=== PATIENT | male | born 1945 | race Caucasian/White ===

== ENCOUNTER → 2018-12-23 08:21 | Outpatient (CLI) | payer MEDICARE, BC, SELFPAY ==
[2018-12-23 10:11] LABS: Add Manual Diff / Slide Review NO; Basophils Absolute Auto 0 /uL (0-100); Basophils Percent Auto 1.2 % (0-2); Eosinophils Absolute Auto 100 /uL (0-450); Eosinophils Percent Auto 3.2 % (2-4); Hematocrit 42.2 % (41-53); Hemoglobin 14.5 g/dL (13.5-17.5); Lymphocytes Absolute Auto 1200 /uL (1100-4500); Lymphocytes Percent Auto 31.8 % (25-40); Mean Corpuscular HGB Conc 34.5 % (30-36); Mean Corpuscular Hemoglobin 30.9 PG (26-34); Mean Corpuscular Volume 89.5 fL (80-100); Monocytes Absolute Auto 400 /uL (0-900); Monocytes Percent Auto 10.7 % (3-14); Neutrophils Absolute Auto 2000 /uL (1500-7000); Neutrophils Percent Auto 53.1 % (50-75); Platelet Count 272 X10^3/uL (150-400); Red Blood Cell Count 4.71 X10^6/uL (4.5-5.9); Red Cell Distribution Width 13.5 % (11.6-14.8); White Blood Cell Count 3.9 X10^3/uL (4.5-11.0)
[2018-12-23 10:58] LABS: Alanine Aminotransferase 43 IU/L (21-72); Albumin 4.6 g/dL (3.5-5.0); Albumin Globulin Ratio 1.5 (1.0-2.8); Alkaline Phosphatase 79 U/L (38-126); Aspartate Aminotransferase 39 IU/L (17-59); Bilirubin Total 0.9 mg/dL (0.2-1.3); Blood Urea Nitrogen 16 mg/dL (9-20); Calcium 8.4 mg/dL (8.4-10.2); Carbon Dioxide 27 mmol/L (22-32); Chloride 103 mmol/L (98-107); Cholesterol 228 mg/dL (140-199); Estimated Glomerular Filt Rate > 60.0 mL/min (>60); Globulin 3.1 g/dL (1.7-4.1); Glucose 90 mg/dL (80-110); HDL Cholesterol 77 mg/dL (40-60); HEMOLYSIS < 15 (0-50); LDL Cholesterol Calculated 119 mg/dL (<100); Potassium 4.3 mmol/L (3.4-5.1); Sodium 140 mmol/L (137-145); Total Protein 7.7 g/dL (6.3-8.2); Triglycerides 158 mg/dL (35-150)
[2018-12-23 11:08] LABS: Thyroid Stimulating Hormone 3.91 uIU/mL (0.47-4.68)
[2018-12-23 11:24] LABS: Prostate Specific Antigen Scrn 1.57 ng/mL (0.1-4.0)
[2018-12-25 08:16] LABS: Hepatitis B Surf AB Imm QUANT < 5 mIU/mL (> 9)
== END ==
PROVIDERS: Family Provider Family Medicine; PCP Family Medicine; Visit Provider Family Medicine
DX: E78.5 Hyperlipidemia, unspecified (principal); Z01.84 Encounter for antibody response examination; Z12.5 Encounter for screening for malignant neoplasm of prostate; Z13.0 Encounter for screening for diseases of the blood and blood-forming organs and certain disorders involving the immune mechanism; Z13.1 Encounter for screening for diabetes mellitus
CPT/HCPCS: 36415; 80053; 80061; 84443; 85025; 86317; G0103

== ENCOUNTER → 2020-03-02 08:33 | Outpatient (CLI) | payer MEDICARE, BC, SELFPAY ==
[2020-03-02 09:01] LABS: Add Manual Diff / Slide Review NO; Basophils Absolute Auto 0 /uL (0-100); Basophils Percent Auto 1.1 % (0-2); Eosinophils Absolute Auto 100 /uL (0-450); Eosinophils Percent Auto 3.5 % (2-4); Hematocrit 41.5 % (41-53); Hemoglobin 14.7 g/dL (13.5-17.5); Lymphocytes Absolute Auto 1300 /uL (1100-4500); Lymphocytes Percent Auto 34.2 % (25-40); Mean Corpuscular HGB Conc 35.3 % (30-36); Mean Corpuscular Hemoglobin 31.4 PG (26-34); Monocytes Absolute Auto 300 /uL (0-900); Monocytes Percent Auto 8.8 % (3-14); Neutrophils Absolute Auto 2000 /uL (1500-7000); Neutrophils Percent Auto 52.4 % (50-75); Platelet Count 257 X10^3/uL (150-400); Red Blood Cell Count 4.66 X10^6/uL (4.5-5.9); White Blood Cell Count 3.8 X10^3/uL (4.5-11.0)
[2020-03-02 09:23] LABS: Alanine Aminotransferase 29 IU/L (<50); Albumin 4.7 g/dL (3.5-5.0); Albumin Globulin Ratio 1.8 (1.0-2.8); Alkaline Phosphatase 70 U/L (38-126); Aspartate Aminotransferase 35 IU/L (17-59); BUN Creatinine Ratio 15.9 (6-22); Bilirubin Total 0.7 mg/dL (0.2-1.3); Blood Urea Nitrogen 14 mg/dL (9-20); Calcium 9.1 mg/dL (8.4-10.2); Carbon Dioxide 28 mmol/L (22-32); Chloride 106 mmol/L (98-107); Cholesterol 212 mg/dL (140-199); Estimated Glomerular Filt Rate > 60.0 mL/min (>60); Globulin 2.6 g/dL (1.7-4.1); Glucose 97 mg/dL (80-110); HDL Cholesterol 77 mg/dL (40-60); HEMOLYSIS < 15 (0-50); LDL Cholesterol Calculated 104 mg/dL (<100); Potassium 4.8 mmol/L (3.4-5.1); Sodium 141 mmol/L (137-145); Total Protein 7.3 g/dL (6.3-8.2); Triglycerides 154 mg/dL (35-150)
[2020-03-02 09:52] LABS: Prostate Specific Antigen Scrn 1.72 ng/mL (0.1-4.0); Thyroid Stimulating Hormone 3.66 uIU/mL (0.47-4.68)
== END ==
PROVIDERS: Family Provider Family Medicine; PCP Family Medicine; Referring Provider Family Medicine; Visit Provider Family Medicine
DX: E78.2 Mixed hyperlipidemia (principal); Z12.5 Encounter for screening for malignant neoplasm of prostate
CPT/HCPCS: 36415; 80053; 80061; 84443; 85025; G0103

== ENCOUNTER → 2020-03-07 09:15 | Outpatient (CLI) | payer MEDICARE, BC, SELFPAY ==
[2020-03-08 16:13] LABS: COVID19 Sendout Not Detected (Not Detect)
== END ==
PROVIDERS: Family Provider Family Medicine; PCP Family Medicine; Visit Provider Physician Assistant
DX: Z01.812 Encounter for preprocedural laboratory examination (principal)
CPT/HCPCS: 87635

== ENCOUNTER → 2020-03-10 13:36 | Outpatient (CLI) | payer MEDICARE, BC, SELFPAY ==
--- NOTE | 2020-03-10 14:37 | PM.TREADMILL ---
Cardiac Stress Test Report Referral & Results Date Patient Seen: 03/10/20 Time Patient Seen: 14:30 Requesting provider: Ramon Caldwell Indication: Unexplained tachycardia Rest ECG: Sinus tachycardia in the low 100s. Procedure Note: Today following both written and verbal informed consent, the patient was exercised according to a standard [facility] protocol. The patient exercised for a total of 6 minutes 20 seconds achieving a maximum heart rate of 170 for. Patient's maximum systolic blood pressure was 188. This was an estimated 7 METs. Normal hemodynamic response to exercise. No change in rhythm. 0.[address] deviations in inferior leads that responded rapidly with rest. Rapid drop of heart rate into the 80s after finishing exercise. No signs or symptoms of angina. Normal exercise capacity (MARIAN 0% on active scale). Impression: Normal test. Low probability for ischemia. Please note: Actual ECG tracings can be found in the PACS system.
== END ==
PROVIDERS: Family Provider Family Medicine; PCP Family Medicine; Referring Provider Student in an Organized Health Care Education/Training Program; Visit Provider Student in an Organized Health Care Education/Training Program
DX: R00.0 Tachycardia, unspecified (principal)
CPT/HCPCS: 93016; 93017; 93018

== ENCOUNTER → 2021-08-04 10:43 | Outpatient (CLI) | payer MEDICARE, BC, SELFPAY ==
[2021-08-04 12:36] LABS: Prostate Specific Antigen Scrn 2.58 ng/mL (0.1-4.0)
[2021-08-04 12:37] LABS: TSH w/ Reflex to FT4 3.19 uIU/mL (0.47-4.68)
== END ==
PROVIDERS: Family Provider Family Medicine; PCP Student in an Organized Health Care Education/Training Program; Referring Provider Student in an Organized Health Care Education/Training Program; Visit Provider Student in an Organized Health Care Education/Training Program
DX: Z12.5 Encounter for screening for malignant neoplasm of prostate (principal); E03.8 Other specified hypothyroidism
CPT/HCPCS: 36415; 84443; G0103

== ENCOUNTER → 2022-06-21 15:00 | Outpatient (CLI) | payer MEDICARE, BC, SELFPAY ==
--- NOTE | 2022-07-03 10:12 | P.HOLT.S_ITS ---
[employer] Report Referral & Results Date Patient Seen: 06/21/22 Requesting provider: Diomedes Oneal Indication: Palpitations Duration of monitoring (days): 6 Diary information: There were 2 patient triggered events and 2 patient diary entries All of these patient events were variably associated with (within 45 seconds) sinus rhythm, PVCs, PACs and SVT Data: Minimum heart rate identified was 56 beats per minute at 05:44 on 06/24/2022 Maximum sinus heart rate was 135 beats per minute at 14:49 on 06/25/2022 Maximum overall heart rate was 193 beats per minute at 20:01 on 06/21/2022 during a run of SVT Less than 1% of identified beats were ventricular or supraventricular ectopic in origin, which would classify them as rare. Patient at 1 run of nonsustained monomorphic ventricular tachycardia was 19 beats in duration at a rate of 176 beats per minute There were 29 runs of SVT with the fastest being the 6 beat run at the above rate of 193 beats per minute, the longest lasting 43.9 seconds at a rate of 116 beats per minute which suggest more atrial tachycardia rather than true SVT There were no pauses of 3 seconds or longer or episodes of atrial fibrillation identified on this study Impression: 5+ day satellite project site monitor demonstrating a single run ventricular tachycardia 14 beats in duration Patient also with very rare very brief runs of SVT No clear correlation between patient events and anyone single dysrhythmia, multiple dysrhythmias were noted as above Clinical correlation suggested
== END ==
PROVIDERS: Family Provider Family Medicine; PCP Student in an Organized Health Care Education/Training Program; Referring Provider Student in an Organized Health Care Education/Training Program; Visit Provider Student in an Organized Health Care Education/Training Program
DX: R00.2 Palpitations (principal)
CPT/HCPCS: 93242; 93244

== ENCOUNTER → 2022-10-16 08:16 | Outpatient (CLI) | payer MEDICARE, BC, SELFPAY ==
[2022-10-16 09:07] LABS: Add Manual Diff / Slide Review NO; Basophils Absolute Auto 100 /uL (0-100); Basophils Percent Auto 1.2 % (0-2); Eosinophils Absolute Auto 100 /uL (0-450); Lymphocytes Absolute Auto 1300 /uL (1100-4500); Lymphocytes Percent Auto 30.8 % (25-40); Mean Corpuscular HGB Conc 34.9 % (30-36); Mean Corpuscular Hemoglobin 30.8 PG (26-34); Mean Corpuscular Volume 88.3 fL (80-100); Monocytes Absolute Auto 400 /uL (0-900); Monocytes Percent Auto 9.3 % (3-14); Neutrophils Absolute Auto 2300 /uL (1500-7000); Neutrophils Percent Auto 55.7 % (50-75); Platelet Count 257 X10^3/uL (150-400); Red Blood Cell Count 4.53 X10^6/uL (4.5-5.9); Red Cell Distribution Width 13.3 % (11.6-14.8); White Blood Cell Count 4.2 X10^3/uL (4.5-11.0)
[2022-10-16 09:41] LABS: Alanine Aminotransferase 46 IU/L (<50); Albumin 4.3 g/dL (3.5-5.0); Albumin Globulin Ratio 1.4 (1.0-2.8); Alkaline Phosphatase 69 U/L (38-126); Aspartate Aminotransferase 43 IU/L (17-59); BUN Creatinine Ratio 14.3 (6-22); Bilirubin Total 0.8 mg/dL (0.2-1.3); Blood Urea Nitrogen 13 mg/dL (9-20); Calcium 8.4 mg/dL (8.4-10.2); Carbon Dioxide 25 mmol/L (22-32); Chloride 108 mmol/L (98-107); Cholesterol 183 mg/dL (140-199); Estimated Glomerular Filt Rate > 60 mL/min (>60); Glucose 94 mg/dL (80-110); HDL Cholesterol 71 mg/dL (40-60); HEMOLYSIS < 15 (0-50); LDL Cholesterol Calculated 78 mg/dL (<100); Potassium 4.2 mmol/L (3.4-5.1); Sodium 140 mmol/L (137-145); Total Protein 7.3 g/dL (6.3-8.2); Triglycerides 171 mg/dL (35-150)
[2022-10-16 10:12] LABS: Prostate Specific Antigen Scrn 2.11 ng/mL (0.1-4.0)
[2022-10-16 10:14] LABS: TSH w/ Reflex to FT4 4.61 uIU/mL (0.47-4.68)
== END ==
PROVIDERS: Family Provider Family Medicine; PCP Family Medicine; Referring Provider Internal Medicine Cardiovascular Disease; Visit Provider Internal Medicine Cardiovascular Disease
DX: I47.1 Supraventricular tachycardia (principal); E78.5 Hyperlipidemia, unspecified; Z12.5 Encounter for screening for malignant neoplasm of prostate; I47.29 Other ventricular tachycardia
CPT/HCPCS: 36415; 80053; 80061; 84443; 85025; G0103

== ENCOUNTER → 2023-08-22 08:31 | Outpatient (CLI) | payer MEDICARE, OTHER, SELFPAY ==
[2023-08-22 09:40] LABS: Add Manual Diff / Slide Review NO; Basophils Absolute Auto 0 /uL (0-100); Basophils Percent Auto 1.2 % (0-2); Eosinophils Absolute Auto 100 /uL (0-450); Hematocrit 40.2 % (41-53); Hemoglobin 14.3 g/dL (13.5-17.5); Lymphocytes Absolute Auto 1400 /uL (1100-4500); Lymphocytes Percent Auto 33.5 % (25-40); Mean Corpuscular HGB Conc 35.7 % (30-36); Mean Corpuscular Hemoglobin 31.5 PG (26-34); Mean Corpuscular Volume 88.4 fL (80-100); Monocytes Absolute Auto 400 /uL (0-900); Monocytes Percent Auto 10.7 % (3-14); Neutrophils Absolute Auto 2100 /uL (1500-7000); Neutrophils Percent Auto 51.6 % (50-75); Platelet Count 260 X10^3/uL (150-400); Red Blood Cell Count 4.55 X10^6/uL (4.5-5.9); Red Cell Distribution Width 13.2 % (11.6-14.8); White Blood Cell Count 4.1 X10^3/uL (4.5-11.0)
[2023-08-22 09:58] LABS: Alanine Aminotransferase 39 IU/L (<50); Albumin 4.4 g/dL (3.5-5.0); Albumin Globulin Ratio 1.4 (1.0-2.8); Alkaline Phosphatase 62 U/L (38-126); BUN Creatinine Ratio 13.4 (6-22); Bilirubin Total 0.7 mg/dL (0.2-1.3); Blood Urea Nitrogen 11 mg/dL (9-20); Carbon Dioxide 25 mmol/L (22-32); Chloride 106 mmol/L (98-107); Cholesterol 185 mg/dL (140-199); Estimated Glomerular Filt Rate > 60 mL/min (>60); Globulin 3.1 g/dL (1.7-4.1); Glucose 102 mg/dL (80-110); HDL Cholesterol 70 mg/dL (40-60); HEMOLYSIS < 15 (0-50); LDL Cholesterol Calculated 77 mg/dL (<100); Potassium 4.2 mmol/L (3.4-5.1); Sodium 140 mmol/L (137-145); Total Protein 7.5 g/dL (6.3-8.2); Triglycerides 189 mg/dL (35-150)
[2023-08-22 10:24] LABS: Thyroid Stimulating Hormone 4.21 uIU/mL (0.47-4.68)
[2023-08-22 10:28] LABS: Prostate Specific Antigen 2.08 ng/mL (0.10-4.00)
[2023-08-24 16:02] LABS: Aspartate Aminotransferase 39 IU/L (17-59)
== END ==
PROVIDERS: Family Provider Family Medicine; PCP Family Medicine; Referring Provider Family Medicine; Visit Provider Family Medicine
DX: R35.1 Nocturia (principal); Z13.9 Encounter for screening, unspecified; E78.5 Hyperlipidemia, unspecified; E03.9 Hypothyroidism, unspecified; E78.00 Pure hypercholesterolemia, unspecified; R53.82 Chronic fatigue, unspecified
CPT/HCPCS: 36415; 80053; 80061; 84153; 84443; 85025